=== PATIENT | male | born 1955 | race Caucasian/White ===

== ENCOUNTER 2017-02-07 09:00 | Emergency (ER) | payer BC, OTHER ==
[2017-02-07 09:06] VITALS: BP 154/95; PULSE 96; TEMP 97.9; BMI 23.3
--- NOTE | 2017-02-07 09:22 | PDOC ---
History of Present Illness - General History Source: Patient, Family (Step-daughter) Exam Limitations: No Limitations - History of Present Illness Initial Comments: 02/07/17 09:21 Patient is a 61 year old male with significant history of smoking and heavy drinking and a history of tongue cancer s/p surgery 1 year ago with no followup presenting with growth on tongue and neck for the last two months. Patient first noticed the growth about two months ago. Initially it was non painful but has been recently become painful when the patient swallows. He has problems swallowing both liquids and solids but states the problem is the pain and not obstruction. Patient smokes 1 pk cigarettes per day Patient drinks 7-8 beers every day. His last drink was at 7 AM this morning History of tremors when he stops drinking, history of librium use to manage withdrawals 02/07/17 09:39 <Jerardo Lindo - Last Filed: 02/07/17 11:13> <Faustino Thomas - Last Filed: 02/07/17 12:33> - General Chief Complaint: Pain Stated Complaint: NECK SWOLLEN Time Seen by Provider: 02/07/17 09:21 Past History - Past Medical History Cancer: Yes (TONGUE) HTN: Yes - Psycho/Social/Smoking Cessation Hx Suicidal Ideation: No Smoking History: Current every day smoker Number of Cigarettes Smoked Daily: 20 Information on smoking cessation initiated: No <Jerardo Lindo - Last Filed: 02/07/17 11:13> <aFustino Thomas - Last Filed: 02/07/17 12:33> - Past Medical History Allergies/Adverse Reactions: Allergies Allergy/AdvReac Type Severity Reaction Status Date / Time No Known Allergies Allergy Verified 02/07/17 09:06 Home Medications: Ambulatory Orders Aspirin [ASA -] 81 mg PO DAILY 02/07/17 *Physical Exam - Vital Signs Last Vital Signs Temp Pulse Resp BP Pulse Ox 97.9 F 96 H 18 154/95 98 02/07/17 09:03 02/07/17 09:03 02/07/17 09:03 02/07/17 09:03 02/07/17 09:03 <Jerardo Lindo - Last Filed: 02/07/17 11:13> - Vital Signs Last Vital Signs Temp Pulse Resp BP Pulse Ox 97.9 F 96 H 18 154/95 98 02/07/17 09:03 02/07/17 09:03 02/07/17 09:03 02/07/17 09:03 02/07/17 09:03 <Faustino Thomas - Last Filed: 02/07/17 12:33> ED Treatment Course - LABORATORY CBC & Chemistry Diagram: 02/07/17 09:59 02/07/17 09:59 - RADIOLOGY Radiograph Interpretation: 02/07/17 11:13 [id number] RAD/CHEST PA LAT Chest: Throat pain. 2 views of the chest reveal clear lungs, sclerotic knob, normal aditya and normal heart. The angles are sharp. Soft tissues are intact and there are minimal degenerative changes. Impression: No acute pathology. Sclerotic knob. No change of an adverse nature since 11/15/2015. <Jerardo Lindo - Last Filed: 02/07/17 11:13> - LABORATORY CBC & Chemistry Diagram: 02/07/17 09:59 02/07/17 09:59 - ADDITIONAL ORDERS Additional order review: Laboratory Results 02/07/17 09:59 Sodium 137 Potassium 4.0 Chloride 98 Carbon Dioxide 30 Anion Gap 9 BUN 5 L Creatinine 0.8 Creat Clearance w eGFR > 60 Random Glucose 93 Calcium 9.3 Total Bilirubin 0.7 AST 233 H ALT 156 H Alkaline Phosphatase 88 Total Protein 8.6 H Albumin 3.7 02/07/17 09:59 RBC 4.97 MCV 97.3 H MCHC 34.5 RDW 12.7 MPV 8.2 Neutrophils % 55.7 Lymphocytes % 28.6 Monocytes % 13.4 H Eosinophils % 1.2 Basophils % 1.1 - RADIOLOGY Radiology Studies Ordered: Category Date Time Status SOFT TISSUE NECK CT WITH CONTR [CT] Stat CT Scan 02/07/17 11:35 Completed <Faustino Thomas - Last Filed: 02/07/17 12:33> Medical Decision Making - Medical Decision Making 02/07/17 09:21 61 year old male with history of tongue cancer s/p tumor resection but w/o followup, significant smoking and drinking history, and 2 months of progressive growth to left neck and tongue Ddx includes but is not limited to potential airway obstruction, recurrence of cancer, infectious process (Papa's angina, abscess) IV Basic labs CXR CT neck soft tissue with contrast Oncology Followup 02/07/17 10:03 02/07/17 11:06 CBC WBC 6.2 K/mm3 (4.0-10.0) 02/07/17 09:59 RBC 4.97 M/mm3 (4.00-5.60) 02/07/17 09:59 Hgb 16.7 GM/dL (11.7-16.9) 02/07/17 09:59 Hct 48.3 % (35.4-49) 02/07/17 09:59 MCV 97.3 fl (80-96) H 02/07/17 09:59 MCH 33.6 pg (25.7-33.7) 02/07/17 09:59 MCHC 34.5 g/dl (32.0-35.9) 02/07/17 09:59 RDW 12.7 % (11.9-15.9) 02/07/17 09:59 Plt Count 235 K/MM3 (134-434) 02/07/17 09:59 MPV 8.2 fl (7.5-11.1) 02/07/17 09:59 Neutrophils % 55.7 % (42.8-82.8) 02/07/17 09:59 Lymphocytes % 28.6 % (8-40) 02/07/17 09:59 Monocytes % 13.4 % (3.8-10.2) H 02/07/17 09:59 Eosinophils % 1.2 % (0-4.5) 02/07/17 09:59 Basophils % 1.1 % (0-2.0) 02/07/17 09:59 Grossly within normal limits CMP Sodium 137 mmol/L (136-145) 02/07/17 09:59 Potassium 4.0 mmol/L (3.5-5.1) 02/07/17 09:59 Chloride 98 mmol/L (98-107) 02/07/17 09:59 Carbon Dioxide 30 mmol/L (21-32) 02/07/17 09:59 Anion Gap 9 (8-16) 02/07/17 09:59 BUN 5 mg/dL (7-18) L 02/07/17 09:59 Creatinine 0.8 mg/dL (0.7-1.3) 02/07/17 09:59 Creat Clearance w eGFR > 60 (>60) 02/07/17 09:59 Random Glucose 93 mg/dL (74-106) 02/07/17 09:59 Calcium 9.3 mg/dL (8.5-10.1) 02/07/17 09:59 Total Bilirubin 0.7 mg/dL (0.2-1.0) 02/07/17 09:59 AST 233 U/L (15-37) H 02/07/17 09:59 ALT 156 U/L (12-78) H 02/07/17 09:59 Alkaline Phosphatase 88 U/L (45-117) 02/07/17 09:59 Total Protein 8.6 g/dl (6.4-8.2) H 02/07/17 09:59 Albumin 3.7 g/dl (3.4-5.0) 02/07/17 09:59 LFTs consistent with chronic drinking Grossly within normal limits, possible low nutrition 02/07/17 11:14 CXR: No acute pathology. Sclerotic knob. No change of an adverse nature since . <Jerardo Lindo - Last Filed: 02/07/17 11:13> *DC/Admit/Observation/Transfer <Jerardo Lindo - Last Filed: 02/07/17 11:13> <Faustino Thomas - Last Filed: 02/07/17 12:33> Diagnosis at time of Disposition: Neck mass - Discharge Dispostion Disposition: HOME - Referrals Referrals: Karena Cool MD [Primary Care Provider] - Marcel Sidhu MD [Staff Physician] - Marissa Jerry MD [Staff Physician] - Nik Loredo MD [Staff Physician] - - Patient Instructions Printed Discharge Instructions: Tongue Cancer Additional Instructions: Please call to make an appointment with oncology and ENT clinic immediately. You must have your neck mass further evaluated, as it may represent cancer. If left untreated, this may be a life-threatening condition. Call the numbers provided to make an appointment, or ask your primary doctor to refer you to an oncologist and ENT specialist. If you begin to experience any difficulty swallowing or breathing, return immediately to the ER.
--- NOTE | 2017-02-07 09:57 | PDOC ---
Attending Attestation - Resident Resident Name: Jerardo Lindo - ED Attending Attestation I have performed the following: I have examined & evaluated the patient, The case was reviewed & discussed with the resident, I agree w/resident's findings & plan, Exceptions are as noted - HPI HPI: 02/07/17 09:37 61 M with h/o HTN, tongue cancer s/p resection 1 year ago, presenting with 2 months of L neck growth. He comes to the ER today at the urging of his family members. Pt states that it is not painful, and it only bothers him when he eats and swallows certain foods. He notes a small new growth on his tongue where he previously had a mass resected, and a growth on the left side of his neck that is completely new. He states that he is still able to tolerate food and liquids without difficulty. Denies drooling or difficulty managing his secretions. Denies difficulty breathing, hoarseness, or voice changes. Pt denies CP/SOB, denies F/C. Denies N/V/abdominal pain. - Physicial Exam PE: 02/07/17 10:14 Gen: WDWN, alert, NAD HEENT: + small growth on left posterior tongue, 7cm firm mass on L lateral neck with surrounding smaller firm nodules, PERRL Lungs: CTAB, no wheezing, NO STRIDOR, no rales CV: RRR, no m/r/g Abd: soft, NTND extremities: WWP Neuro: CN 1-12 intact - Medical Decision Making 02/07/17 10:17 61 M with L neck and tongue mass, concerning for malignancy. Pt afebrile, and masses are firm, not fluctuant, making infectious process less likely. Pt with NO evidence of airway compromise. Still able to tolerate PO without difficulty. - CT neck w/ contrast - CXR - Refer to oncology and ENT I have discussed with patient and step-daughter the importance of prompt follow up with oncology and ENT. I expressed my concern that the pt may have metastatic disease, which could potentially kill him if left untreated. The pt and family member express understanding. Pt is clinically sober, free from distracting injury, appears to have intact judgment, insight, and reason, and in my opinion has the capacity to make decisions. 02/07/17 12:33 CT neck shows 5cm mass. Results discussed with patient and family member.
[2017-02-07 10:26] LABS: BASOPHIL 1.1 % (0-2.0); EOSINOPHIL 1.2 % (0-4.5); MCH 33.6 pg (25.7-33.7); MCHC 34.5 g/dl (32.0-35.9); MEAN CELL VOLUME 97.3 fl (80-96); MEAN PLT VOLUME 8.2 fl (7.5-11.1); NEUTROPHILS 55.7 % (42.8-82.8); PLATELET COUNT 235 K/MM3 (134-434); RDW 12.7 % (11.9-15.9); WHITE BLOOD COUNT 6.2 K/mm3 (4.0-10.0)
[2017-02-07 10:50] LABS: ALBUMIN 3.7 g/dl (3.4-5.0); ALK PHOS 88 U/L (45-117); ANION GAP 9 (8-16); BILIRUBIN,TOTAL 0.7 mg/dL (0.2-1.0); CALCIUM 9.3 mg/dL (8.5-10.1); CO2 30 mmol/L (21-32); CREATININE 0.8 mg/dL (0.7-1.3); GLUCOSE,RANDOM 93 mg/dL (74-106); SGOT/AST 233 U/L (15-37); SGPT/ALT 156 U/L (12-78); TOT PROT 8.6 g/dl (6.4-8.2)
== END 2017-02-07 12:55 | disposition home or self-care (01) ==
LOC: JER 09:00
DX: R22.1 Localized swelling, mass and lump, neck (principal); Z85.810 Personal history of malignant neoplasm of tongue; F10.10 Alcohol abuse, uncomplicated; F17.210 Nicotine dependence, cigarettes, uncomplicated
CPT/HCPCS: 36415; 70491-TC; 71020-TC; 80053; 85025; 99283-25

== ENCOUNTER 2017-05-09 11:06 | Inpatient (IN) | payer OTHER ==
[2017-05-09 12:19] VITALS: BMI 21.6
--- NOTE | 2017-05-09 13:59 | HP ---
CIWA Score - CIWA Score Nausea/Vomitin-Mild Nausea/No Vomiting Muscle Tremors: 4-Moderate,w/Arms Extend Anxiety: 4-Mod. Anxious/Guarded Agitation: 1-Slight > Activity Paroxysmal Sweats: 1-Minimal Palms Moist Orientation: 0-Oriented Tacttile Disturbances: 1-Very Mild Itch/Numbness Auditory Disturbances: 1-Very Mild Visual Disturbances: 1-Very Mild Sensitivity Headache: 1-Very Mild CIWA-Ar Total Score: 15 Admission ROS [facility] - HPI Chief Complaint: I want to stop drinking so I can get treatment for this (points to neck mass) Allergies/Adverse Reactions: Allergies Allergy/AdvReac Type Severity Reaction Status Date / Time No Known Allergies Allergy Verified 05/09/17 14:31 History of Present Illness: 61 yo gentleman here for detox from alcohol - no seizures. Has history of head and neck cancer and needs detox prior to treatment per oncologist at [facility]. Was in detox here in 1999 - no other detox. Noted patient was in ED for neck mass in January [address] results. Exam Limitations: Clinical Condition - Ebola screening Have you traveled outside of the country in the last 21 days: No Have you had contact with anyone from an Ebola affected area: No Have you been sick,other than usual withdrawal symptoms: No Do you have a fever: No - Review of Systems Constitutional: Loss of Appetite, Night Sweats, Changes in sleep EENT: reports: Blurred Vision, Other (denies any difficulty swallowing, left sided neck mass) Respiratory: reports: No Symptoms reported Cardiac: reports: No Symptoms Reported GI: reports: No Symptoms Reported : reports: Frequency Musculoskeletal: reports: No Symptoms Reported Integumentary: reports: No Symptoms Reported Neuro: reports: No Symptoms reported Endocrine: reports: No Symptoms Reported Hematology: reports: No Symptoms Reported Psychiatric: reports: Judgement Intact, Mood/Affect Appropiate, Orientated x3, Anxious Other Systems: Reviewed and Negative Patient History - Patient Medical History Hx Anemia: No Hx Asthma: No Hx Chronic Obstructive Pulmonary Disease (COPD): No Hx Cancer: Yes (TONGUE, neck) Hx Cardiac Disorders: No Hx Congestive Heart Failure: No Hx Hypertension: No Hx Hypercholesterolemia: No Hx Pacemaker: No HX Cerebrovascular Accident: No Hx Seizures: No Hx Dementia: No Hx Diabetes: No Hx Gastrointestinal Disorders: No Hx Liver Disease: No Hx Genitourinary Disorders: No Hx Sexually Transmitted Disorders: No Hx Renal Disease (ESRD): No Hx Thyroid Disease: No Hx Human Immunodeficiency Virus (HIV): No Hx Hepatitis C: No Hx Depression: Yes (worried about neck mass) Hx Suicide Attempt: No Hx Bipolar Disorder: No Hx Schizophrenia: No - Patient Surgical History Past Surgical History: Yes Other Surgical History: tongue resection for maligancy 2016; biopsy - PPD History Previous Implant?: Yes Documented Results: Negative w/proof PPD to be Administered?: Yes - Reproductive History Patient is a Female of Child Bearing Age (11 -55 yrs old): No (male) - Smoking Cessation Smoking history: Current every day smoker Aproximately how many cigarettes per day: 20 Initiated information on smoking cessation: Yes 'Breaking Loose' booklet given: 05/09/17 (give on floor) - Substance & Tx. History Hx Alcohol Use: Yes Hx Substance Use: No Substance Use Type: Alcohol Hx Substance Use Treatment: Yes (detox, rehab) - Substances Abused Alcohol Route: Oral Frequency: Daily Amount used: six pack of 12 oz beers, two six pack on weekends Age of first use: 16 Date of Last Use: 05/09/17 Family Disease History - Family Disease History Family Disease History: Diabetes: Father ( 'old age', etohhx), Other: Father, Mother (healthy - in [place]), Brother (one - healthy ), Son (one, healthy, in [place]), Daughter (one, healthy, in [place]) [facility] - Vital Signs Vital Signs: Vital Signs - 24 hr 05/09/17 12:18 Temperature 97.4 F L Pulse Rate 69 Respiratory 20 Rate Blood Pressure 131/79 - Physical General Appearance: Yes: Nourished, Appropriately Dressed, Mild Distress, Tremorous, Anxious HEENTM: Yes: Hearing grossly Normal, Other (hard, irregular left sided neck mass ) Respiratory: Yes: Normal Breath Sounds, No Respiratory Distress Neck: Yes: Mass Breast: Yes: Breast Exam Deferred Cardiology: Yes: Regular Rhythm, Regular Rate Abdominal: Yes: Flat Genitourinary: Yes: Frequency Back: Yes: Normal Inspection Musculoskeletal: Yes: full range of Motion, Gait Steady Extremities: Yes: Normal Inspection, Non-Tender Neurological: Yes: Fully Oriented, Alert, Normal Mood/Affect, Normal Response Integumentary: Yes: Normal Color, Warm Lymphatic: Yes: Within Normal Limits - Diagnostic (1) Alcohol dependence with uncomplicated withdrawal Current Visit: Yes Status: Chronic (2) History of head and neck cancer Current Visit: Yes Status: Chronic (3) Nicotine dependence Current Visit: Yes Status: Chronic Qualifiers: Nicotine product type: cigarettes Substance use status: uncomplicated Qualified Code(s): F17.210 - Nicotine dependence, cigarettes, uncomplicated (4) Neck mass Current Visit: Yes Status: Acute Comment: for f/u with oncology after detox [facility]ared for [facility] - [facility]ox [facility] Level of Care: Medically Managed Detox Regimen/Protocol: Librium [facility] Breath Alcohol Content Breath Alcohol Content: 0.106 Urine Drug Screen - Results Drug Screen Negative: Yes
[2017-05-09] MEDS ORDERED: MENTHOL/PHENOL 1 EACH UD MM PRN (14:05)
[2017-05-09] MEDS ORDERED: MAGNESIUM CITRATE 300 ML BOTTLE PO PRN (14:05)
[2017-05-09] MEDS ORDERED: P-EPHED 60MG/TRIPROLIDI 2.5MG TABLET PO PRN (14:05)
[2017-05-09] MEDS ORDERED: hydrOXYzine PAMOATE 25 MG CAPSULE (FP) PO PRN (14:05)
[2017-05-09] MEDS ORDERED: guaiFENesin/D-METHORPHAN HB 10 ML UNIT-DOSE CUPS PO PRN (14:05)
[2017-05-09] MEDS ORDERED: IBUPROFEN 400 MG TABLET (FP) PO PRN (14:05)
[2017-05-09] MEDS ORDERED: ACETAMINOPHEN 325 MG TABLET (FP) PO PRN (14:05)
[2017-05-09] MEDS ORDERED: chlordiazePOXIDE HCL 25 MG CAPSULE PO PRN (14:05)
[2017-05-09] MEDS ORDERED: MAGNESIUM HYDROX 2400MG/30ML ORAL SUSPENSION 30 ML CUP PO PRN (14:05)
[2017-05-09] MEDS ORDERED: MAG HYDROX/AL HYDROX/SIMETH 30 ML UNIT-DOSE CUP PO PRN (14:05)
[2017-05-09] MEDS ORDERED: LOPERAMIDE HCL 2 MG CAPSULE PO PRN (14:05)
[2017-05-09] MEDS ORDERED: chlordiazePOXIDE HCL 25 MG CAPSULE PO ONE (15:00)
[2017-05-09] MEDS: ASPIRIN 81 MG CHEWABLE TABLETS PO SCH (15:48)
[2017-05-09] MEDS: NICOTINE 21 MG/24 HOURS TOPICAL PATCH TD SCH (15:50)
[2017-05-09] MEDS: chlordiazePOXIDE HCL 25 MG CAPSULE PO SCH ×2 (17:39→22:35)
[2017-05-09 19:47] LABS: URINE APPEARANCE CLEAR; URINE BILIRUBIN NEGATIVE (NEGATIVE); URINE BLOOD NEGATIVE (NEGATIVE); URINE COLOR LTYELLOW; URINE GLUCOSE (UA) NEGATIVE (NEGATIVE); URINE KETONE NEGATIVE (NEGATIVE); URINE NITRITE NEGATIVE (NEGATIVE); URINE PROTEIN NEGATIVE (NEGATIVE); URINE UROBILINOGEN NEGATIVE mg/dL (0.2-1.0)
[2017-05-09 21:47] LABS: URINE LEUK ESTERASE Negative (NEGATIVE)
[2017-05-09] MEDS: THIAMINE HCL 100 MG TABLET (FP) PO SCH (22:34)
[2017-05-10] MEDS: chlordiazePOXIDE HCL 25 MG CAPSULE PO SCH ×4 (05:39→22:02)
--- NOTE | 2017-05-10 08:30 | CONSULT ---
[facility] Psychiatric Consult - Data Date of interview: 05/10/17 Identifying data: Mr Tavares is a 61 years old male Substance Abuse History: Reports history of alcohol use. Refer to addiction counselor's note for further information Medical History: Significant for cancer of tongue & neck and history of surgery for tongue resection for malignancy in 2016. Smokes cigarette 1ppd
--- NOTE | 2017-05-10 09:46 | CONSULT ---
[facility] Psychiatric Consult - Data Date of interview: 05/10/17 (Self) Admission source: Self=referred Identifying data: Mr Tavares is a 61 years old [place]-born male, retired on social security disability, domiciled living with girlfriend and stepdaughter Substance Abuse History: Reports history of alcohol use. Refer to addiction counselor's note for further information Medical History: Significant for cancer of tongue & neck and history of surgery for resection of malignant mass on tongue in 2016. Smokes cigarette 1ppd Psychiatric History: Denies history of previous psychiatric treatment Physical/Sexual Abuse/Trauma History: Denies history of verbal; physical or sexual abuse Additional Comment: No criminal history Mental Status Exam - Mental Status Exam Alert and Oriented to: Time, Place, Person Cognitive Function: Fair Patient Appearance: Well Groomed Mood: Hopeful, Euthymic Affect: Appropriate Patient Behavior: Cooperative Speech Pattern: Clear Voice Loudness: Normal Thought Process: Intact, Goal Oriented Hallucinations: Denies Suicidal Ideation: Denies Homicidal Ideation: Denies Insight/Judgement: Poor Sleep: Fair Appetite: Good Muscle strength/Tone: Normal Gait/Station: Normal Psychiatric Findings - Problem List ([place] 1, 2,3) (1) Alcohol dependence with uncomplicated withdrawal Current Visit: Yes Status: Acute (2) Nicotine dependence Current Visit: Yes Status: Chronic Qualifiers: Nicotine product type: cigarettes Substance use status: uncomplicated Qualified Code(s): F17.210 - Nicotine dependence, cigarettes, uncomplicated (3) History of head and neck cancer Current Visit: Yes Status: Chronic - Initial Treatment Plan Initial Treatment Plan: Continue inpatient detoxification
[2017-05-10] MEDS: NICOTINE 21 MG/24 HOURS TOPICAL PATCH TD SCH (10:11)
[2017-05-10] MEDS: ASPIRIN 81 MG CHEWABLE TABLETS PO SCH (10:11)
[2017-05-10] MEDS: PRENATAL VITAMINS W/ FOLIC ACID TABLET (FP) PO SCH (10:11)
[2017-05-10 10:30] LABS: MCH 32.5 pg (25.7-33.7); MCHC 33.4 g/dl (32.0-35.9); MEAN CELL VOLUME 97.4 fl (80-96); MEAN PLT VOLUME 7.6 fl (7.5-11.1); PLATELET COUNT 256 K/MM3 (134-434); RDW 12.9 % (11.9-15.9); WHITE BLOOD COUNT 6.2 K/mm3 (4.0-10.0)
[2017-05-10 10:40] LABS: ALBUMIN 2.8 g/dl (3.4-5.0); ANION GAP 5 (8-16); BILIRUBIN,TOTAL 0.7 mg/dL (0.2-1.0); CALCIUM 8.7 mg/dL (8.5-10.1); CO2 32 mmol/L (21-32); CREATININE 0.8 mg/dL (0.7-1.3); GLUCOSE,RANDOM 134 mg/dL (74-106); SGOT/AST 74 U/L (15-37); SGPT/ALT 68 U/L (12-78)
[2017-05-10 10:41] LABS: ALK PHOS 72 U/L (45-117)
--- NOTE | 2017-05-10 13:31 | PN ---
S CIWA - CIWA Score Nausea/Vomitin-No Nausea/No Vomiting Muscle Tremors: 4-Moderate,w/Arms Extend Anxiety: 4-Mod. Anxious/Guarded Agitation: 3 Paroxysmal Sweats: 3 Orientation: 0-Oriented Tacttile Disturbances: 1-Very Mild Itch/Numbness Auditory Disturbances: 0-None Visual Disturbances: 0-None Headache: 0-None Present CIWA-Ar Total Score: 15 [facility] Progress Note (SOAP) Subjective: Sweating,anxiety,tremors,interrupted sleep,restless. Objective: 05/10/17 13:30 Vital Signs - 8 hr 05/10/17 05/10/17 06:00 09:40 Temperature 97.9 F 97.2 F L Pulse Rate 79 102 H Respiratory 18 18 Rate Blood Pressure 121/76 133/77 Laboratory Tests 05/09/17 05/10/17 05/10/17 16:00 07:15 07:15 WBC 6.2 RBC 4.54 Hgb 14.8 D Hct 44.2 MCV 97.4 H MCH 32.5 MCHC 33.4 RDW 12.9 Plt Count 256 MPV 7.6 Sodium 138 Potassium 4.3 Chloride 101 Carbon Dioxide 32 Anion Gap 5 L BUN 8 D Creatinine 0.8 Creat Clearance w eGFR > 60 Random Glucose 134 H D Calcium 8.7 Total Bilirubin 0.7 AST 74 H D ALT 68 D Alkaline Phosphatase 72 Total Protein 7.0 Albumin 2.8 L D Urine Color Ltyellow Urine Appearance Clear Urine pH 6.0 Ur Specific [place] 1.005 Urine Protein Negative Urine Glucose (UA) Negative Urine Ketones Negative Urine Blood Negative Urine Nitrite Negative Urine Bilirubin Negative Urine Urobilinogen Negative Ur Leukocyte Esterase Negative RPR Titer 05/10/17 07:15 WBC RBC Hgb Hct MCV MCH MCHC RDW Plt Count MPV Sodium Potassium Chloride Carbon Dioxide Anion Gap BUN Creatinine Creat Clearance w eGFR Random Glucose Calcium Total Bilirubin AST ALT Alkaline Phosphatase Total Protein Albumin Urine Color Urine Appearance Urine pH Ur Specific [place] Urine Protein Urine Glucose (UA) Urine Ketones Urine Blood Urine Nitrite Urine Bilirubin Urine Urobilinogen Ur Leukocyte Esterase RPR Titer Nonreactive labs noted,fbs in AM Assessment: 05/10/17 13:30 Withdrawal sx. Plan: Continue detox
[2017-05-10] MEDS: THIAMINE HCL 100 MG TABLET (FP) PO SCH (22:03)
[2017-05-11] MEDS: chlordiazePOXIDE HCL 25 MG CAPSULE PO SCH ×2 (05:17→10:25)
--- NOTE | 2017-05-11 09:39 | EKG ---
Test Reason : Blood Pressure : / mmHG Vent. Rate : 066 BPM Atrial Rate : 066 BPM P-R Int : 128 ms QRS Dur : 088 ms QT Int : 408 ms P-R-T Axes : 049 084 065 degrees QTc Int : 427 ms NORMAL SINUS RHYTHM NORMAL ECG NO PREVIOUS ECGS AVAILABLE Confirmed by JEAN-PAUL DANIEL, FROY ([id number]) on 05/11/2017 9:39:30 AM Referred By: JOCELYNE FLEMING Confirmed By:FROY JEONG MD
--- NOTE | 2017-05-11 09:56 | PN ---
S CIWA - CIWA Score Nausea/Vomitin-No Nausea/No Vomiting Muscle Tremors: 4-Moderate,w/Arms Extend Anxiety: 3 Agitation: 3 Paroxysmal Sweats: 3 Orientation: 0-Oriented Tacttile Disturbances: 0-None Auditory Disturbances: 0-None Visual Disturbances: 0-None Headache: 0-None Present CIWA-Ar Total Score: 13 S Progress Note (SOAP) Subjective: agitation sweats mild shakes restless Objective: 05/11/17 09:55 Vital Signs Temperature 97.8 F 05/11/17 06:15 Pulse Rate 77 05/11/17 06:15 Respiratory Rate 18 05/11/17 06:15 Blood Pressure 150/82 05/11/17 06:15 O2 Sat by Pulse Oximetry (%) Laboratory Tests 05/09/17 05/10/17 05/10/17 16:00 07:15 07:15 WBC 6.2 RBC 4.54 Hgb 14.8 D Hct 44.2 MCV 97.4 H MCH 32.5 MCHC 33.4 RDW 12.9 Plt Count 256 MPV 7.6 Sodium 138 Potassium 4.3 Chloride 101 Carbon Dioxide 32 Anion Gap 5 L BUN 8 D Creatinine 0.8 Creat Clearance w eGFR > 60 Random Glucose 134 H D Calcium 8.7 Total Bilirubin 0.7 AST 74 H D ALT 68 D Alkaline Phosphatase 72 Total Protein 7.0 Albumin 2.8 L D Urine Color Ltyellow Urine Appearance Clear Urine pH 6.0 Ur Specific [place] 1.005 Urine Protein Negative Urine Glucose (UA) Negative Urine Ketones Negative Urine Blood Negative Urine Nitrite Negative Urine Bilirubin Negative Urine Urobilinogen Negative Ur Leukocyte Esterase Negative RPR Titer 05/10/17 07:15 WBC RBC Hgb Hct MCV MCH MCHC RDW Plt Count MPV Sodium Potassium Chloride Carbon Dioxide Anion Gap BUN Creatinine Creat Clearance w eGFR Random Glucose Calcium Total Bilirubin AST ALT Alkaline Phosphatase Total Protein Albumin Urine Color Urine Appearance Urine pH Ur Specific [place] Urine Protein Urine Glucose (UA) Urine Ketones Urine Blood Urine Nitrite Urine Bilirubin Urine Urobilinogen Ur Leukocyte Esterase RPR Titer Nonreactive aaox3 ambulating no acute distress Assessment: 05/11/17 09:55 withdrawal sx Plan: continue detox increase fluids
[2017-05-11] MEDS: PRENATAL VITAMINS W/ FOLIC ACID TABLET (FP) PO SCH (10:25)
[2017-05-11] MEDS: ASPIRIN 81 MG CHEWABLE TABLETS PO SCH (10:25)
[2017-05-11] MEDS: NICOTINE 21 MG/24 HOURS TOPICAL PATCH TD SCH (10:25)
[2017-05-11] MEDS: chlordiazePOXIDE 5 MG CAPSULE PO SCH ×2 (17:39→22:20)
[2017-05-11] MEDS: THIAMINE HCL 100 MG TABLET (FP) PO SCH (22:20)
--- NOTE | 2017-05-11 22:55 | PN ---
[facility] Progress Note Note: received nurse call that the patient has +PPD reading, asymptomatic chest x ray rule out tb
[2017-05-12] MEDS: chlordiazePOXIDE 5 MG CAPSULE PO SCH ×2 (05:13→10:14)
--- NOTE | 2017-05-12 09:13 | PN ---
[facility] Progress Note (SOAP) Subjective: feeling much better little sweats Objective: 05/12/17 09:12 Vital Signs Temperature 98.2 F 05/12/17 06:32 Pulse Rate 95 H 05/12/17 06:32 Respiratory Rate 18 05/12/17 06:32 Blood Pressure 128/77 05/12/17 06:32 O2 Sat by Pulse Oximetry (%) aaox3 ambulating no acute distress Assessment: 05/12/17 09:12 mild withdrawal sx Plan: continue detox increase fluids d/c in am
[2017-05-12] MEDS: PRENATAL VITAMINS W/ FOLIC ACID TABLET (FP) PO SCH (10:14)
[2017-05-12] MEDS: NICOTINE 21 MG/24 HOURS TOPICAL PATCH TD SCH (10:14)
[2017-05-12] MEDS: ASPIRIN 81 MG CHEWABLE TABLETS PO SCH (10:14)
[2017-05-12] MEDS: chlordiazePOXIDE HCL 10 MG CAPSULE PO SCH ×2 (17:08→22:16)
[2017-05-12] MEDS: THIAMINE HCL 100 MG TABLET (FP) PO SCH (22:16)
[2017-05-13] MEDS: chlordiazePOXIDE HCL 10 MG CAPSULE PO SCH (05:34)
--- NOTE | 2017-05-13 08:27 | DS ---
[facility] Detox Discharge Summary Admission Date: 05/09/17 Discharge Date: 05/13/17 - History Present History: Alcohol Dependence Additional Comments: patient refuses aftercare Pertinent Past History: nicotine dependence, neck mass - h/o head and neck cancer, insomnia, anxiety, and depression - Physical Exam Results Vital Signs: Vital Signs Temperature 97.9 F 05/13/17 06:28 Pulse Rate 75 05/13/17 06:28 Respiratory Rate 18 05/13/17 06:28 Blood Pressure 155/77 05/13/17 06:28 O2 Sat by Pulse Oximetry (%) Laboratory Tests 05/09/17 05/10/17 05/10/17 16:00 07:15 07:15 WBC 6.2 RBC 4.54 Hgb 14.8 D Hct 44.2 MCV 97.4 H MCH 32.5 MCHC 33.4 RDW 12.9 Plt Count 256 MPV 7.6 Sodium 138 Potassium 4.3 Chloride 101 Carbon Dioxide 32 Anion Gap 5 L BUN 8 D Creatinine 0.8 Creat Clearance w eGFR > 60 Random Glucose 134 H D Calcium 8.7 Total Bilirubin 0.7 AST 74 H D ALT 68 D Alkaline Phosphatase 72 Total Protein 7.0 Albumin 2.8 L D Urine Color Ltyellow Urine Appearance Clear Urine pH 6.0 Ur Specific [place] 1.005 Urine Protein Negative Urine Glucose (UA) Negative Urine Ketones Negative Urine Blood Negative Urine Nitrite Negative Urine Bilirubin Negative Urine Urobilinogen Negative Ur Leukocyte Esterase Negative RPR Titer 05/10/17 07:15 WBC RBC Hgb Hct MCV MCH MCHC RDW Plt Count MPV Sodium Potassium Chloride Carbon Dioxide Anion Gap BUN Creatinine Creat Clearance w eGFR Random Glucose Calcium Total Bilirubin AST ALT Alkaline Phosphatase Total Protein Albumin Urine Color Urine Appearance Urine pH Ur Specific [place] Urine Protein Urine Glucose (UA) Urine Ketones Urine Blood Urine Nitrite Urine Bilirubin Urine Urobilinogen Ur Leukocyte Esterase RPR Titer Nonreactive Pertinent Admission Physical Exam Findings: withdrawal sx - Treatment Hospital Course: Detox Protocol Followed, Detoxed Safely, Responded well, Discharged Condition Good Patient has Accepted a Rehab Referral to: NO - Medication Discharge Medications: Ambulatory Orders Aspirin [ASA -] 81 mg PO DAILY 02/07/17 - Diagnosis (1) Alcohol dependence with uncomplicated withdrawal Current Visit: Yes Status: Chronic (2) History of head and neck cancer Current Visit: Yes Status: Chronic (3) Neck mass Current Visit: Yes Status: Chronic (4) Nicotine dependence Current Visit: Yes Status: Chronic Qualifiers: Nicotine product type: cigarettes Substance use status: uncomplicated Qualified Code(s): F17.210 - Nicotine dependence, cigarettes, uncomplicated - AMA Did Patient Leave Against Medical Advice: No
[2017-05-13 10:17] VITALS: BP 125/73; PULSE 94; TEMP 97.7
[2017-05-13] MEDS: NICOTINE 21 MG/24 HOURS TOPICAL PATCH TD SCH (10:20)
[2017-05-13] MEDS: ASPIRIN 81 MG CHEWABLE TABLETS PO SCH (10:20)
[2017-05-13] MEDS: PRENATAL VITAMINS W/ FOLIC ACID TABLET (FP) PO SCH (10:20)
== END 2017-05-13 10:34 | disposition home or self-care (01) | DRG 775 ==
LOC: YASAS 11:06 → Y6N 14:39
PROVIDERS: ADMIT Internal Medicine; ATTEND Internal Medicine
PROC: HZ2ZZZZ Detoxification Services for Substance Abuse Treatment (ICD-10-PCS; principal; 2017-05-09)
DX: F10.230 Alcohol dependence with withdrawal, uncomplicated (principal); F17.210 Nicotine dependence, cigarettes, uncomplicated; F41.8 Other specified anxiety disorders; G47.00 Insomnia, unspecified; R22.1 Localized swelling, mass and lump, neck; Z85.89 Personal history of malignant neoplasm of other organs and systems
CPT/HCPCS: 36415; 71020-TC; 80053; 81003; 85027; 86593; 93005; 93010

== ENCOUNTER 2018-01-16 18:54 | Emergency (ER) | payer OTHER ==
[2018-01-16 19:03] VITALS: BMI 17.8
--- NOTE | 2018-01-16 19:47 | PDOC ---
Attending Attestation - HPI HPI: 01/16/18 23:55 The patient is a 62 year old male with past medical history of neck cancer and tongue cancer s/p glossectomy who presents to the emergency department for evaluation of neck mass, mouth, and nose bleeding. The patient reports profuse bleeding from mouth and nose (about 3 cups full) 3 hours ago lasting 10-15 minutes. He describes the blood as dark red with clots. Pt reports associated unsteady balance and worsening headache ranked 5/10 in severity over the last 2 days. Of note, the patient has lost 60lbs over the last year secondary to decreased appetite and dysphagia. Denies use of blood thinners. The patient denies chest pain, shortness of breath, headache, and dizziness. Denies chills, nausea, vomiting, any bowel/urinary symptoms. Allergies: NKDA Social History: smokes 3 cigs a day. Former EtOH dependence. No reported drug use. Surgical History: Glossectomy Oncologist: Dr. Elvi garsia at [facility] - Physicial Exam PE: GENERAL: Awake, alert, and fully oriented, in no acute distress HEAD: No signs of trauma EYES: PERRLA, EOMI, sclera anicteric, conjunctiva clear ENT: (+)Residual blood in nose and mouth. Auricles normal inspection, hearing grossly normal, nares patent, oropharynx clear without exudates. Moist mucosa NECK: (+)Exophytic, lobulated neck mass, [id number] mass by left neck. (+)Hard lymph nodes on right side.Normal ROM, supple. LUNGS: Breath sounds equal, clear to auscultation bilaterally. No wheezes, and no crackles HEART: Regular rate and rhythm, normal S1 and S2, no murmurs, rubs or gallops ABDOMEN: Soft, nontender, normoactive bowel sounds. No guarding, no rebound. No masses EXTREMITIES: Normal range of motion, no edema. No clubbing or cyanosis. No cords, erythema, or tenderness NEUROLOGICAL: Cranial nerves II through XII grossly intact. Normal speech, normal gait SKIN: Warm, Dry, normal turgor, no rashes or lesions noted. <Jay Jay Coffey - Last Filed: 01/16/18 23:55> - Resident Resident Name: Jose Manuel Nichole - ED Attending Attestation I have performed the following: I have examined & evaluated the patient, The case was reviewed & discussed with the resident, I agree w/resident's findings & plan - Medical Decision Making 01/17/18 19:22 Pt is hemodynamically stable. He will be transferred up to [facility], where his ENT docs are. We spoke to our ENT chronometer assembler who is worried that this may be a sentinel bleed that may precede a more severe bleed. Pt accepted by [facility]. <Jailene Delatorre - Last Filed: 01/17/18 19:23> Attestations - Attestations Documentation prepared by Jay Jay Coffey, acting as biomedical engineering supervisor for Jailene Delatorre MD. <Jay Jay Coffey - Last Filed: 01/16/18 23:55>
[2018-01-16] MEDS ORDERED: FOLIC ACID INJECTION - 1 MG, THIAMINE HCL 100 MG, MULTIVIT INJECTION ADULT 10 ML in SOD... IVPB ONE (20:53)
[2018-01-16 22:51] LABS: BASO % 0.4 % (0-2.0); EOS % 0.4 % (0-4.5); HEMATOCRIT 42.1 % (35.4-49); HEMOGLOBIN 14.2 GM/dL (11.7-16.9); LYMPH % 8.5 % (8-40); MCH 30.7 pg (25.7-33.7); MCHC 33.7 g/dl (32.0-35.9); MEAN CELL VOLUME 91.1 fl (80-96); MEAN PLT VOLUME 7.5 fl (7.5-11.1); MONO % 5.1 % (3.8-10.2); NEUT % 85.6 % (42.8-82.8); PLATELET COUNT 337 K/MM3 (134-434); RBC 4.62 M/mm3 (4.00-5.60); RDW 12.6 % (11.9-15.9); WHITE BLOOD COUNT 13.4 K/mm3 (4.0-10.0)
[2018-01-16 23:02] LABS: INR 1.1 (0.82-1.09); PROTHROMBIN TIME (PATIENT) 12.4 SEC (9.7-13.0)
[2018-01-16 23:03] VITALS: BP 147/96; PULSE 89; TEMP 98.2
[2018-01-16 23:24] LABS: ALBUMIN 3.5 g/dl (3.4-5.0); ALK PHOS 80 U/L (45-117); ANION GAP 6 (8-16); BILIRUBIN,TOTAL 0.9 mg/dL (0.2-1.0); BLOOD UREA NITROGEN 19 mg/dL (7-18); CALCIUM 10.4 mg/dL (8.5-10.1); CHLORIDE 100 mmol/L (98-107); CO2 33 mmol/L (21-32); CREATININE 0.8 mg/dL (0.7-1.3); GLUCOSE,RANDOM 88 mg/dL (74-106); SGOT/AST 18 U/L (15-37); SGPT/ALT 19 U/L (12-78); SODIUM 139 mmol/L (136-145); TOT PROT 8.3 g/dl (6.4-8.2)
--- NOTE | 2018-01-17 00:41 | PDOC ---
History of Present Illness - General Chief Complaint: Nasal Bleeding Stated Complaint: NOSE/MOUTH BLEED Time Seen by Provider: 01/16/18 19:11 History Source: Patient Exam Limitations: No Limitations - History of Present Illness Initial Comments: 01/17/18 00:35 Mr. Tavares is a 62 yo M with a hx of neck and tongue cancer (last radiation august 2017) who presented to the emergency department with mouth and nose bleeding approximately at 6:00pm. He stated it lasted for 15 minutes and described dark red blood clots exiting his nares and mouth that filled approximately 3 cups. He denies having bright red blood that was pulsatile in nature. He states his next appointment with his oncologist (Dr. Elvi Saenz) is January 20 for chemotherapy consultation. In addition, he states having a headache for the past two days located in the anterior and occipital region without radiation that is 5/10. He endorses the following: dizziness, and unsteadiness when walking, and generalized weakness. Denies the following: fever, blood thinning medications, visual changes, focal neuological deficits, and hx of [place] and CVA. 01/17/18 00:46 Past History - Past Medical History Allergies/Adverse Reactions: Allergies Allergy/AdvReac Type Severity Reaction Status Date / Time No Known Allergies Allergy Verified 01/16/18 20:05 Home Medications: Ambulatory Orders Nystatin Oral Suspension - [Nystatin Oral Susp 031434 Units/5 ML -] 500,000 unit PO DAILY 01/16/18 Oxycodone HCl/Acetaminophen [Percocet 5-325 mg Tablet] 1 tab PO Q4H 01/16/18 Anemia: No Asthma: No Cancer: Yes (TONGUE, neck) Cardiac Disorders: No CVA: No COPD: No CHF: No Dementia: No Diabetes: No GI Disorders: No Disorders: No HTN: No Hypercholesterolemia: No Liver Disease: No Seizures: No Thyroid Disease: No - Suicide/Smoking/Psychosocial Hx Smoking History: Current every day smoker Number of Cigarettes Smoked Daily: 20 Information on smoking cessation initiated: No 'Breaking Loose' booklet given: 05/09/17 Hx Alcohol Use: Yes Drug/Substance Use Hx: No Substance Use Type: Alcohol Hx Substance Use Treatment: Yes (detox, rehab) *Physical Exam - Vital Signs Last Vital Signs Temp Pulse Resp BP Pulse Ox 98.2 F 89 16 147/96 96 01/16/18 23:02 01/16/18 23:02 01/16/18 23:02 01/16/18 23:02 01/16/18 23:02 ED Treatment Course - LABORATORY CBC & Chemistry Diagram: 01/16/18 22:40 01/16/18 22:40 - ADDITIONAL ORDERS Additional order review: Laboratory Results 01/16/18 01/16/18 22:40 22:40 PT with INR 12.40 INR 1.10 Sodium 139 Potassium 4.0 Chloride 100 Carbon Dioxide 33 H Anion Gap 6 L BUN 19 H Creatinine 0.8 Creat Clearance w eGFR > 60 Random Glucose 88 D Calcium 10.4 H Total Bilirubin 0.9 AST 18 D ALT 19 D Alkaline Phosphatase 80 Total Protein 8.3 H Albumin 3.5 01/16/18 22:40 RBC 4.62 MCV 91.1 MCHC 33.7 RDW 12.6 MPV 7.5 Neutrophils % 85.6 H D Lymphocytes % 8.5 D Monocytes % 5.1 Eosinophils % 0.4 Basophils % 0.4 - RADIOLOGY Radiology Studies Ordered: Category Date Time Status CHEST PA & LAT [RAD] Stat Radiology 01/16/18 21:26 Taken *DC/Admit/Observation/Transfer Diagnosis at time of Disposition: Neck mass, History of head and neck cancer, Mouth bleeding, Nasal bleeding - Discharge Dispostion Disposition: TRANSFER ACUTE CARE/OTHER HOSP - Referrals Referrals: Elvi Jane [Primary Care Provider] - - Patient Instructions - Post Discharge Activity
--- NOTE | 2018-01-18 10:25 | EKG ---
Test Reason : Blood Pressure : / mmHG Vent. Rate : 082 BPM Atrial Rate : 082 BPM P-R Int : 128 ms QRS Dur : 082 ms QT Int : 368 ms P-R-T Axes : 072 089 070 degrees QTc Int : 429 ms SINUS RHYTHM WITH MARKED SINUS ARRHYTHMIA POSSIBLE LEFT ATRIAL ENLARGEMENT BORDERLINE ECG WHEN COMPARED WITH ECG OF 09-MAY-2017 16:01, NO SIGNIFICANT CHANGE WAS FOUND Confirmed by DERRICK DANIEL, KIA ([id number]) on 01/18/2018 10:24:55 AM Referred By: Confirmed By:KIA MEZA MD
== END 2018-01-17 00:50 | disposition short-term general hospital (02) ==
LOC: JER 18:54
PROC: 3E033GC Introduction of Other Therapeutic Substance into Peripheral Vein, Percutaneous Approach (ICD-10-PCS; principal; 2018-01-16)
DX: R22.1 Localized swelling, mass and lump, neck (principal); Z85.810 Personal history of malignant neoplasm of tongue; Z85.89 Personal history of malignant neoplasm of other organs and systems; R51 Headache; R53.1 Weakness; R26.81 Unsteadiness on feet; F17.210 Nicotine dependence, cigarettes, uncomplicated
CPT/HCPCS: 36415; 71046-TC-FY; 80053; 85025; 85610; 86850; 86900; 86901; 93005; 93010; 96365; 96366; 99283-25; J7030